=== PATIENT | female | born 1950 | race Caucasian/White ===

== ENCOUNTER → 2024-09-06 06:49 | Outpatient (REF) | payer OTHER, SELFPAY | LOC: RCS 06:49 | PROVIDERS: ATTENDING PHYSICIAN Internal Medicine Cardiovascular Disease; FAMILY PHYSICIAN Family Medicine | DX: R07.89 Other chest pain (principal); R00.2 Palpitations | CPT/HCPCS: 78452; 93017; A9500 ==